=== PATIENT | male | born 1970 | race Caucasian/White ===

== ENCOUNTER 2017-10-24 18:25 | Emergency (ER) | payer OTHER ==
--- NOTE | 2017-10-24 18:49 | UC ---
Abdominal Pain Male HPI - HPI Summary HPI Summary: Pt presents with generalized abdominal pain for 2.5 days. He tells me that his abdomen feels "full" and that he feels that if he could have a BM or vomit his pain would improve. He has not had a bowel movement in 2.5days and says this is very abnormal for him as he usually has a BM once or twice a day. His pain is not localized to any specific area and is not changed with eating. He is still eating and drinking. Denies fever, chills, SOB, chest pain, nausea, vomiting, diarrhea, dysuria, or flank pain. - History of Current Complaint Chief Complaint: UCGI Stated Complaint: ABDOMINAL PAIN Time Seen by Provider: 10/24/17 18:40 Onset/Duration: Gradual Onset Severity Initially: Mild Severity Currently: Mild Pain Intensity: 4 Pain Scale Used: 0-10 Numeric - Allergies/Home Medications Allergies/Adverse Reactions: Allergies Allergy/AdvReac Type Severity Reaction Status Date / Time No Known Allergies Allergy Verified 10/24/17 18:37 Home Medications: Home Medications NK [No Home Medications Reported] 10/24/17 [History Confirmed 10/24/17] PMH/Surg Hx/FS Hx/Imm Hx Previously Healthy: Yes - Surgical History Surgical History: Yes Surgery Procedure, Year, and Place: removal of nail/sneaker at age 7 - Family History Known Family History: Positive: None - Social History Occupation: Employed Full-time Lives: With Family Alcohol Use: Rare Substance Use Type: None Smoking Status (MU): Never Smoked Tobacco Review of Systems Constitutional: Negative Skin: Negative Respiratory: Negative Cardiovascular: Negative Gastrointestinal: Abdominal Pain, Other - Constipation Genitourinary: Negative Neurological: Negative Psychological: Negative All Other Systems Reviewed And Are Negative: Yes Physical Exam Triage Information Reviewed: Yes Appearance: Well-Appearing, No Pain Distress, Obese Vital Signs: Initial Vital Signs Temp 97.3 F 10/24/17 18:30 Pulse 101 10/24/17 18:30 Resp 16 10/24/17 18:30 BP 166/116 10/24/17 18:30 Pulse Ox 100 10/24/17 18:30 Vital Signs Reviewed: Yes Neck: Positive: Supple, Nontender, No Lymphadenopathy Respiratory: Positive: Lungs clear, Normal breath sounds, No respiratory distress, No accessory muscle use Cardiovascular: Positive: RRR, No Murmur, Pulses Normal Abdomen Description: Positive: No Organomegaly, Soft, Distended - Mildly, Other : - Mild TTP generalized. Negative: CVA Tenderness (R), CVA Tenderness (L), Guarding, Hernia @, Hepatomegaly, McBurney's Point Tenderness, Pulsatile Mass Bowel Sounds: Positive: Present Neurological: Positive: Alert Psychological: Positive: Age Appropriate Behavior Skin: Negative: rashes Abd Pain Male Course/Dx - Course Course Of Treatment: Abdominal XR: IMPRESSION: No free air or obstruction is noted. Repeat BP manually was 138/88. I discussed with the patient that it is possible his abdominal discomfort is due to constipation, but I cannot be sure with the limited testing available here at urgent care. I have a low suspicion for appendicitis, GI ulcer, pancreatitis, or an intra-abdominal inflammatory/ infectious process - but these conditions would more appropriately be evaluated in the ED. The pt wished try OTC therapy before going to the ED. I have advised him to try mag citrate OTC and to go to the ED if his symptoms worsen or persist despite treatment. - Differential Dx/Clinical Impression Provider Diagnoses: Abdominal pain. Constipation Discharge - Discharge Plan Condition: Stable Disposition: HOME Patient Education Materials: Constipation (DC) Referrals: Juan Luis De La Cruz MD [Primary Care Provider] - Additional Instructions: If you develop a fever, shortness of breath, chest pain, new or worsening symptoms - please call your PCP or go to the ED. Your blood pressure was high at todays visit. Please see your primary provider within 4 weeks for recheck and re-evaluation. 1) May try OTC magnesium citrate as directed for relief of your constipation. 2) If your abdominal pain worsens, you start vomiting, or if the medication fails to improve your pain - please go to the ED immediately.
--- NOTE | 2017-10-24 19:27 | RAD ---
Indication: Abdominal pain. Flat and upright views of the abdomen demonstrates no free air. No dilated loops of bowel are noted. The colon is filled with stool. IMPRESSION: No free air or obstruction is noted.
[2017-10-24 19:40] VITALS: BP 138/88
== END 2017-10-24 19:50 | disposition home or self-care (01) ==
LOC: UCEAST 18:25
DX: R10.84 Generalized abdominal pain (principal); K59.00 Constipation, unspecified
CPT/HCPCS: 74019; 99202; G0463